=== PATIENT | female | born 2000 | race Hispanic/Latino ===

== ENCOUNTER 2021-02-05 22:40 | Emergency (ER) | payer BC, OTHER ==
[2021-02-05 23:33] LABS: #Eosinphils 0.1 10x3/uL (0.0-0.5); #Monocytes 0.6 10x3/uL (0.0-1.1); #Neutrophils 6.4 10x3/uL (1.5-8.4); %Basophils 0.2 % (0.0-2.0); %Lymphocytes 26.2 % (18.0-47.0); %Monocytes 6.6 % (0.0-10.0); %Neutrophils 65.7 % (40.0-75.0); Hemoglobin 12.1 g/dL (12.0-15.5); Mean Corpuscular HGB CONC 34.2 g/dL (32.0-36.0); Mean Corpuscular Hemoglobin 30.1 pg (27.0-33.0); Mean Corpuscular Volume 88.1 fl (81.6-98.3); Mean Platelet Volume 9.8 fl (7.4-10.4); Platelet Count 217 10x3/uL (150-450); RBC Distribution Width 12.8 % (11.5-14.5); Red Blood Cell (RBC) Count 4.02 10x6/uL (3.90-5.03); White Blood Cell (WBC) Count 9.7 10x3/uL (3.5-10.5)
[2021-02-05 23:36] LABS: Bilirubin Neg (Negative); Blood, Urine 25 (Negative); Clarity Clear (Clear); Glucose, Urine (Dipstick) Normal (Negative); Ketone, Urine Negative (Negative); Leukocyte Negative (Negative); Nitrite Negative (Negative); Protein, Urine (Dipstick) Negative (Neg-Trace)
[2021-02-06 00:11] LABS: Squamous Epithelial 0-3 HPF (0-3)
[2021-02-06 00:12] LABS: Bacteria/HPF Rare-Few HPF (None Seen)
== END 2021-02-06 03:22 | disposition home or self-care (01) ==
LOC: CSHERS 22:40
DX: O20.8 Other hemorrhage in early pregnancy (principal); O23.91 Unspecified genitourinary tract infection in pregnancy, first trimester; R82.71 Bacteriuria; Z3A.09 9 weeks gestation of pregnancy
CPT/HCPCS: 36415; 76856; 81003; 81015; 84702; 85025; 86900; 86901

== ENCOUNTER 2021-08-28 12:02 | Outpatient (CLI) | payer BC | END 2021-08-28 12:03 | disposition home or self-care (01) | LOC: CSHLAB 12:02 | PROVIDERS: ATTEND Obstetrics & Gynecology | DX: Z20.822 Contact with and (suspected) exposure to COVID-19 (principal) | CPT/HCPCS: 87811 ==

== ENCOUNTER 2021-08-30 19:30 | Inpatient (IN) | payer BC ==
[2021-08-31 02:02] VITALS: BMI 38.9
[2021-08-31] MEDS ORDERED: HYDROcodone/Acetaminophen 5/325 mg Tablet PO PRN (02:16)
[2021-08-31] MEDS ORDERED: Ibuprofen 800 MG TAB PO PRN (02:16)
[2021-08-31] MEDS ORDERED: Acetaminophen 500 MG TAB PO PRN (02:16)
[2021-08-31] MEDS ORDERED: Zolpidem Tartrate 5 MG TAB PO PRN (02:16)
[2021-08-31] MEDS ORDERED: Ondansetron PF 4 MG/2 ML Vial IVP PRN (02:16)
[2021-08-31] MEDS ORDERED: Methylergonovine 0.2 MG/ML VIAL IM PRN (02:16)
[2021-08-31] MEDS ORDERED: Lidocaine 1% (PF) 30 ML VIAL SC PRN (02:16)
[2021-08-31] MEDS ORDERED: Carboprost 250 MCG/ML AMP IM PRN (02:16)
[2021-08-31] MEDS ORDERED: Promethazine HCl 25 MG/ML VIAL IM PRN (02:16)
[2021-08-31] MEDS ORDERED: hydrALAZINE 20 MG/ML VIAL SLOW IVP PRN ×2 (02:16→23:39)
[2021-08-31] MEDS ORDERED: Diphenoxylate HCl/Atropine Tablet PO PRN ×2 (02:16)
[2021-08-31] MEDS ORDERED: Misoprostol 200 MCG TAB PR PRN (02:16)
[2021-08-31] MEDS ORDERED: Butorphanol Tartrate 1 MG/ML VIAL SLOW IVP PRN (02:16)
[2021-08-31] MEDS ORDERED: Penicillin G Potassium 5 MILL.UNITS in Sodium Chloride 0.9% 100 ML IVPB SCH (02:30)
[2021-08-31] MEDS ORDERED: NS w/ Oxytocin 30 units 500 ML IV SCH ×2 (02:30→03:00)
[2021-08-31] MEDS ORDERED: Penicillin G Potassium 5 MILL.UNITS VIAL ONE (02:39)
[2021-08-31] MEDS ORDERED: Misoprostol 100 MCG TAB ONE (02:40)
[2021-08-31] MEDS: Misoprostol 100 MCG TAB VAG SCH ×2 (02:44→06:09)
[2021-08-31] MEDS: Lactated Ringer's 1,000 ML IV SCH (02:45)
[2021-08-31 03:13] LABS: Hemoglobin 10.5 g/dL (12.0-15.5); Mean Corpuscular HGB CONC 34.7 g/dL (32.0-36.0); Mean Corpuscular Hemoglobin 29.3 pg (27.0-33.0); Mean Corpuscular Volume 84.6 fl (81.6-98.3); Mean Platelet Volume 10.2 fl (7.4-10.4); Platelet Count 244 10x3/uL (150-450); RBC Distribution Width 13.6 % (11.5-14.5); Red Blood Cell (RBC) Count 3.58 10x6/uL (3.90-5.03); White Blood Cell (WBC) Count 8.2 10x3/uL (3.5-10.5)
[2021-08-31 03:42] LABS: Hep B Surf Ag Non-Reactive S/CO (NonReactive); Syphilis Antibody Nonreactive (Nonreactive); Syphilis Antibody Index 0.07 S/CO (<1.00 Non-Reactive)
[2021-08-31 03:51] LABS: HBSAg Index 0.18 S/CO (0-0.99)
[2021-08-31] MEDS: Penicillin G 2.5 MILL.units 2.5 MILL.UNITS in Premix Bag 1 BAG IVPB SCH ×3 (08:06→19:01)
[2021-08-31] MEDS ORDERED: Butorphanol Tartrate 1 MG/ML VIAL ONE (10:53)
[2021-08-31] MEDS ORDERED: ePHEDrine Sulfate 50 MG/10 ML VIAL ONE ×2 (11:13→13:47)
[2021-08-31] MEDS ORDERED: Lidocaine 2% MPF 10 ML AMP (For Epidural Use) ONE (11:13)
[2021-08-31] MEDS ORDERED: Bupivacaine 0.25% HCL 30 ML VIAL ONE (11:13)
[2021-08-31] MEDS ORDERED: Fentanyl 2 mcg/Bup 0.1% Cadd 100 ML ONE (12:37)
[2021-08-31] MEDS ORDERED: Penicillin G 2.5 MILL.units 50 ML ONE (19:03)
[2021-08-31] MEDS ORDERED: Methylergonovine 0.2 MG/ML VIAL ONE (19:34)
[2021-08-31] MEDS ORDERED: Benzocaine-Menthol 82.5 ML CAN TOP PRN (23:39)
[2021-08-31] MEDS ORDERED: Lanolin Ointment 7 GM TUBE TOP PRN (23:39)
[2021-08-31] MEDS ORDERED: diphenhydrAMINE 25 MG CAP PO PRN (23:39)
[2021-08-31] MEDS ORDERED: Boostrix 0.5 ML (Tdap) VIAL IM ONE (23:39)
[2021-08-31] MEDS ORDERED: Bisacodyl 10 MG SUPP PR PRN (23:39)
[2021-08-31] MEDS ORDERED: traMADol HCl 50 MG TAB PO PRN (23:39)
[2021-08-31] MEDS: Ibuprofen 800 MG TAB PO SCH (23:50)
[2021-09-01] MEDS: Ibuprofen 800 MG TAB PO SCH ×2 (08:42→16:14)
[2021-09-01] MEDS: Prenatal Vitamin 1 TAB PO SCH (08:42)
[2021-09-01] MEDS: Docusate 100 MG CAP PO SCH ×2 (11:05→21:53)
[2021-09-01] MEDS: Ferrous Sulfate 325 MG TAB PO SCH ×2 (11:05→17:23)
[2021-09-01] MEDS: Misoprostol 100 MCG TAB VAG SCH ×2 (14:56→14:57)
[2021-09-01] MEDS: Penicillin G 2.5 MILL.units 2.5 MILL.UNITS in Premix Bag 1 BAG IVPB SCH (14:57)
[2021-09-01] MEDS: Lactated Ringer's 1,000 ML IV SCH (14:57)
[2021-09-01] MEDS: Milk Of Magnesia 30 ML UDCUP PO PRN (21:52)
[2021-09-02] MEDS: Ibuprofen 800 MG TAB PO SCH ×4 (00:20→21:37)
[2021-09-02] MEDS: Ferrous Sulfate 325 MG TAB PO SCH ×2 (07:44→18:02)
[2021-09-02] MEDS: Docusate 100 MG CAP PO SCH ×2 (08:35→21:37)
[2021-09-02] MEDS: Prenatal Vitamin 1 TAB PO SCH (08:36)
[2021-09-02] MEDS: traMADol HCl 50 MG TAB PO PRN (09:38)
[2021-09-03] MEDS: Milk Of Magnesia 30 ML UDCUP PO PRN (00:49)
[2021-09-03 00:59] VITALS: TEMP 98.3
[2021-09-03] MEDS: Ibuprofen 800 MG TAB PO SCH ×2 (05:15→12:16)
[2021-09-03] MEDS: Ferrous Sulfate 325 MG TAB PO SCH ×2 (07:37→14:37)
[2021-09-03 08:17] VITALS: BP 114/59
[2021-09-03] MEDS: Prenatal Vitamin 1 TAB PO SCH (09:17)
[2021-09-03] MEDS: Docusate 100 MG CAP PO SCH (09:17)
[2021-09-03] MEDS: traMADol HCl 50 MG TAB PO PRN ×2 (09:21→17:54)
== END 2021-09-03 18:00 | disposition home or self-care (01) | DRG 768 ==
LOC: CSHLD 08-31 01:36 → CSHPED 09-01 11:05
PROVIDERS: ADMIT Obstetrics & Gynecology; ATTEND Obstetrics & Gynecology
PROC: 10E0XZZ Delivery of Products of Conception, External Approach (ICD-10-PCS; principal; 2021-08-31)
PROC: 0DQR0ZZ Repair Anal Sphincter, Open Approach (ICD-10-PCS; 2021-08-31)
PROC: 3E0P7VZ Introduction of Hormone into Female Reproductive, Via Natural or Artificial Opening (ICD-10-PCS; 2021-08-31)
DX: O99.824 Streptococcus B carrier state complicating childbirth (principal); Z37.0 Single live birth; Z3A.39 39 weeks gestation of pregnancy; O70.20 Third degree perineal laceration during delivery, unspecified; R51.9 Headache, unspecified; O99.893 Other specified diseases and conditions complicating puerperium; D50.9 Iron deficiency anemia, unspecified; O90.81 Anemia of the puerperium; Z20.822 Contact with and (suspected) exposure to COVID-19
CPT/HCPCS: 36415; 51702; 85027; 86780; 86850; 86900; 86901; 87340; 87811; J0595; J2001; J2540; J2590; J3490; J7120

== ENCOUNTER 2021-09-05 14:33 | Emergency (ER) | payer BC ==
[2021-09-05] MEDS ORDERED: Metoclopramide HCl 10 MG/2 ML VIAL ONE (15:21)
[2021-09-05] MEDS ORDERED: diphenhydrAMINE 50 MG/ML VIAL ONE (15:21)
[2021-09-05] MEDS ORDERED: Acetaminophen 500 MG TAB ONE (15:22)
[2021-09-05 17:08] LABS: ALT (SGPT) 94 U/L (8-55); AST (SGOT) 41 U/L (5-34); Albumin 3.4 g/dL (3.5-5.0); Alkaline Phosphatase 154 U/L (40-110); Anion Gap 12 mmol/L (10-20); BUN (Urea Nitrogen) 8 mg/dL (7.0-18.7); Bilirubin, Total 0.2 mg/dL (0.2-1.2); Calc. Creatinine Clearance 0 mL/min (70-130); Calcium 8.9 mg/dL (7.8-10.44); Carbon Dioxide 25 mmol/L (22-29); Chloride 108 mmol/L (98-107); Estimated GFR 125; Globulin 3.7 g/dL (2.4-3.5); Glucose 84 mg/dL (70-105); Potassium 4.4 mmol/L (3.5-5.1); Protein, Total 7.1 g/dL (6.0-8.3); Sodium 141 mmol/L (136-145)
[2021-09-05 17:33] LABS: #Eosinphils 0.2 10x3/uL (0.0-0.5); #Monocytes 0.5 10x3/uL (0.0-1.1); #Neutrophils 6.6 10x3/uL (1.5-8.4); %Basophils 0.1 % (0.0-2.0); %Eosinophils 1.7 % (0.0-6.0); %Lymphocytes 16.3 % (18.0-47.0); %Monocytes 5.6 % (0.0-10.0); %Neutrophils 75.4 % (40.0-75.0); Hemoglobin 10.2 g/dL (12.0-15.5); Mean Corpuscular HGB CONC 32.7 g/dL (32.0-36.0); Mean Corpuscular Hemoglobin 28.7 pg (27.0-33.0); Mean Corpuscular Volume 87.9 fl (81.6-98.3); Mean Platelet Volume 9.5 fl (7.4-10.4); Platelet Count 277 10x3/uL (150-450); RBC Distribution Width 14.2 % (11.5-14.5); Red Blood Cell (RBC) Count 3.55 10x6/uL (3.90-5.03); White Blood Cell (WBC) Count 8.8 10x3/uL (3.5-10.5)
== END 2021-09-05 17:58 | disposition home or self-care (01) ==
LOC: CSHERS 14:33
DX: O99.893 Other specified diseases and conditions complicating puerperium (principal); R51.9 Headache, unspecified
CPT/HCPCS: 36415; 70450; 80053; 85025; J1200; J2765